=== PATIENT | male | born 1935 | race Caucasian/White ===

== ENCOUNTER 2020-07-27 17:45 | Inpatient (IN) | payer MEDICARE ==
[~2020-07-27] VITALS: Ht 165.1 cm; Wt 49.0 kg
[2020-07-27 18:15] LABS: *BILIRUBIN,URIN NEGATIVE (NEGATIVE); *BLOOD, URINE 3+ (NEGATIVE); *CLARITY,URINE TURBID (CLEAR); *COLOR,URINE YELLOW (YELLOW); *KETONES,URINE TRACE (NEGATIVE); LEUKOCYTE ESTERASE ,URINE 3+ (NEGATIVE); NITRITE, URINE POSITIVE (NEGATIVE); UGLUCOSE NEGATIVE (NEGATIVE)
[2020-07-27 18:17] LABS: BASOPHILS % (AUTO) 0.3 % (0.0-2.0); EOSINOPHILS # (AUTO) 0.2 K/uL (0.0-0.7); EOSINOPHILS % (AUTO) 2.2 % (0.0-7.0); HEMATOCRIT 32.2 % (36.7-47.1); HEMOGLOBIN 10.9 g/dL (12.5-16.3); LYMPHOCYTES # (AUTO) 3.3 K/uL (20.0-40.0); LYMPHOCYTES % (AUTO) 38.5 % (20.5-51.5); MEAN CORPUSCULAR HEMOGLOBIN 31.2 uug (23.8-33.4); MEAN CORPUSCULAR HGB CONC 34 g/dL (32.5-36.3); MEAN CORPUSCULAR VOLUME 92.3 fL (73.0-96.2); MONOCYTES # (AUTO) 0.8 K/uL (2.0-10.0); MONOCYTES % (AUTO) 9.1 % (0.0-11.0); NEUTROPHILS # (AUTO) 4.2 K/uL (1.8-8.9); NEUTROPHILS % (AUTO) 49.9 % (38.5-71.5); PLATELET COUNT (AUTO) 314 K/uL (152-348); RED BLOOD CELL COUNT(AUTO) 3.49 MIL/uL (4.06-5.63); WHITE BLOOD COUNT (AUTO) 8.4 K/uL (3.6-10.2)
[2020-07-27 18:27] LABS: *AMPHETAMINE, URINE NEGATIVE (NEGATIVE); *CANNABINOID, URINE NEGATIVE (NEGATIVE); *COCCAINE, URINE NEGATIVE (NEGATIVE); *OPIATE, URINE NEGATIVE (NEGATIVE); *PHENCYCLIDINE SCREEN,URINE NEGATIVE (NEGATIVE)
[2020-07-27 18:29] LABS: CARBON DIOXIDE 31 mmol/L (21-32); CHLORIDE 105 mmol/L (98-107); CREATININE 0.9 mg/dL (0.6-1.3); ETHANOL < 3 MG/DL (0-0); GLUCOSE 132 mg/dL (74-106); POTASSIUM 3.4 mmol/L (3.5-5.1); UREA NITROGEN, BLOOD 24 mg/dL (7-18)
[2020-07-27 18:35] LABS: ALANINE AMINOTRANSFERASE 11 U/L (16-63); ALKALINE PHOSPHATASE 63 U/L (50-136); ASPARTATE AMINOTRANSFERASE 14 U/L (15-37); BILIRUBIN,DIRECT 0.1 mg/dL (0.0-0.2); BILIRUBIN,TOTAL 0.3 mg/dL (0.2-1.0); TOTAL PROTEIN, SERUM 7.2 g/dL (6.4-8.2)
--- NOTE | 2020-07-27 18:38 | NUR ---
Patient is resting comfortably on gurney, awake, calm & cooperative at the moment, still medical clearance & psych evaluation@this time.
[2020-07-27 18:39] LABS: ACETAMINOPHEN < 2.0 ug/mL (10-30)
[2020-07-27 18:43] LABS: THYROID STIMULATING HORMONE 3.496 mIU/mL (0.358-3.740)
[2020-07-27] MEDS ORDERED: AMLO5TAB9 PO (18:45)
[2020-07-27] MEDS ORDERED: CYAN-10 IM (18:45)
[2020-07-27] MEDS ORDERED: DIVA250T4 PO (18:45)
[2020-07-27] MEDS ORDERED: BISA10SU61 RC (18:45)
--- NOTE | 2020-07-27 18:54 | NUR ---
Hands off report given to DA Hilario
[2020-07-27] MEDS ORDERED: NITROFURANTOIN/NITROFURAN MAC 100 MG CAPSULE PO ONE ×2 (19:00→19:54)
[2020-07-27] MEDS ORDERED: POTASSIUM CHLORIDE 20 MEQ TAB.PRT.SR PO ONE (19:00)
--- NOTE | 2020-07-27 19:05 | NUR ---
Medically cleared by DR Champagne. Called Pinky from PET team. ETA is 1hr.
[2020-07-27] MEDS ORDERED: POTASSIUM CHLORIDE 20 MEQ TAB.PRT.SR ONE (19:53)
[2020-07-27] MEDS ORDERED: TDAP DIPH,PERTUSS,TET VAC/PF 0.5 ML DISP.SYRIN IM ONE (20:16)
--- NOTE | 2020-07-27 21:15 | NUR ---
Transported to MHU via gurny with no distress noted.
[2020-07-27 21:23] LABS: RBC,URINE 20-50 /HPF (0-3); WBC,URINE TNTC /HPF (0-3)
[2020-07-27 21:24] LABS: BACTERIA,URINE MODERATE /HPF (NONE SEEN); SQUAMOUS EPITHELIAL CELL,UR FEW /HPF (NONE SEEN)
[2020-07-27] MEDS ORDERED: MAGNESIUM HYDROXIDE 30 ML LIQUID UDC PO PRN (21:30)
[2020-07-27] MEDS ORDERED: MAG HYDROX/AL HYDROX/SIMETH 30 ML LIQUID UDC PO PRN (21:30)
[2020-07-27] MEDS ORDERED: BLOOD SUGAR DIAGNOSTIC 1 EACH STRIP VI ONE (21:30)
[2020-07-27] MEDS ORDERED: OLANZAPINE 10 MG VIAL IM ONE (21:30)
[2020-07-27 23:21] VITALS: BP 138/66
[2020-07-28] MEDS: TEMAZEPAM 7.5 MG CAPSULE PO PRN (00:51)
--- NOTE | 2020-07-28 01:00 | NUR ---
GPS/Rn - Admit 85 years old male to MHU under the care of Elicia Zhou and Chan Zhou with Dx of Psychosis. Pt was accompianed by ER staff via catalino. Pt admitted on 5149 for GD, DTO from [facility]. Per hold pt was combative, confuse and non compliant with treatment and care. Upon face to face interview noted pt unable to communicate appropriately and too confuse. Pt was very difficult to care for due to behavior and became combative with staffs during initial assessment. Unable to keep pt calm and was not able to prevent possible injury due to pt kept getting out and unable to ambulate. Dx history are: HTN, Dementia, Anemia, Weight loss, Hypothyroidism. By 2209 new order was received from Elicia Zhou to give Zyprexa 5mg IM to help pt calm. Order carried out and pt was monitored. Pt has no next of kin, SNF aware of admission. Skin was assessed and pt had bedsore and right and left side of buttock and bruise on right lower arm. Documented and picture in chart, will endorse to f/up for wound consult. Pt is weak on BLE. By 49 Pt still awake and unable able to sleep, pt was transfer to howard-chair due to continue agitation. At this time pt still awake and agitated unable to rest. PRN Restoril was given and will continue monitor. Pt Right and handbook and Advisement placed in bedside table, pt unable to sign due to condition at this time. Q/15mins head count initiated and will monitor for safety. Continue monitoring, pt at this moment awake in howard-chair.
[2020-07-28] MEDS: LORAZEPAM 1 MG TABLET PO PRN ×2 (03:42→21:20)
--- NOTE | 2020-07-28 04:25 | NUR ---
Pt was still awake and restless after Restoril was administered. None pharmacological intervention ineffective. PRN Ativan was given at 0342. Pt was showered and now transfer to bed. Noted resting with eyes close. Per report pt had x1 Macrobid per abnormal lab result and will need to f/up with Chan Zhou. Also pt had x1 K-dur 20meq due to low potassium level. Will continue monitor and safety precaution in place.
[2020-07-28 07:41] LABS: THYROID STIMULATING HORMONE 7.274 mIU/mL (0.358-3.740)
[2020-07-28 07:53] LABS: BILIRUBIN,TOTAL 0.3 mg/dL (0.2-1.0); CREATININE 0.8 mg/dL (0.6-1.3); POTASSIUM 4.2 mmol/L (3.5-5.1); TOTAL PROTEIN, SERUM 7.7 g/dL (6.4-8.2)
[2020-07-28 07:57] LABS: MAGNESIUM 1.9 mg/dL (1.8-2.4); PHOSPHOROUS 3.2 mg/dL (2.5-4.9)
--- NOTE | 2020-07-28 08:47 | NUR ---
refused vital signs , will recheck later to give amlodipine med.
--- NOTE | 2020-07-28 09:31 | NUR ---
Lois Giles in and saw patient. aware of need consult for wound, speech and diet consult. patient sleeping on and off, sleeping more now after this am round.
[2020-07-28] MEDS: AMLODIPINE 5 MG TABLET PO SCH (11:44)
[2020-07-28 11:45] VITALS: BP 133/80
[2020-07-28] MEDS: NITROFURANTOIN/NITROFURAN MAC 100 MG CAPSULE PO SCH ×2 (11:45→21:20)
--- NOTE | 2020-07-28 11:45 | NUR ---
awake now from prn meds given for agitation. Hob up. able to feed breakfast 75 % , liquid needed to be thickened. took am meds without difficulty.
--- NOTE | 2020-07-28 12:42 | NUR ---
up chair for lunch, tolerating well
[2020-07-28] MEDS ORDERED: OLANZAPINE 2.5 MG TABLET PO PRN (15:30)
[2020-07-28 16:00] VITALS: BP 117/85
[2020-07-28] MEDS: DIVALPROEX SPRINKLE 125 MG CAP.SPRINK PO SCH ×2 (16:11→21:39)
--- NOTE | 2020-07-28 18:24 | NUR ---
ate well for breakfast and lunch, less for dinner. tolerating solid food well. taking fluids well with thickener, voiding accordingly . prn short hollering . taking meds well.
--- NOTE | 2020-07-28 18:24 | NUR ---
awake from lunch to end of shift.
[2020-07-28 20:00] VITALS: BP 125/59
[2020-07-29] MEDS: TEMAZEPAM 7.5 MG CAPSULE PO PRN ×2 (02:12→21:16)
--- NOTE | 2020-07-29 05:26 | NUR ---
GPS/NSG Patient first observed sitting in howard-chair located in unit hallway with no insight into current situation, flat affect low mood. Fair appearance noted. Patient unable to ambulate, is incontinent and requires maximum assistance from staff. Patient is compliant with medication when prompted nursing interventions applied. Patient continues to require observation for safety as well as a therapeutic environment to ensure optimal outcomes.
[2020-07-29 07:30] VITALS: BP_SYST 138; BP_SYST 91; BP_DIAS 52; BP_DIAS 72
[2020-07-29] MEDS: NITROFURANTOIN/NITROFURAN MAC 100 MG CAPSULE PO SCH ×2 (10:06→21:15)
[2020-07-29] MEDS: DIVALPROEX SPRINKLE 125 MG CAP.SPRINK PO SCH ×2 (10:06→20:00)
[2020-07-29] MEDS: AMLODIPINE 5 MG TABLET PO SCH (10:06)
[2020-07-29 15:21] VITALS: BP 91/52
[2020-07-29 20:23] VITALS: BP 126/56
--- NOTE | 2020-07-30 06:27 | NUR ---
GPS/NSG Patient first observed lying in bed with no insight into current situation, flat affect low mood. Fair appearance noted. Patient unable to ambulate, is incontinent and requires maximum assistance from staff. Patient is compliant with medication when prompted nursing interventions applied, wound consult not yet addressed, will endorse to day shift this morning. Patient continues to require observation for safety as well as a therapeutic environment to ensure an optimal outcome.
[2020-07-30 07:30] VITALS: BP 99/45
[2020-07-30] MEDS: DIVALPROEX SPRINKLE 125 MG CAP.SPRINK PO SCH ×3 (08:00→20:09)
[2020-07-30] MEDS: AMLODIPINE 5 MG TABLET PO SCH ×2 (09:00→12:31)
[2020-07-30] MEDS: NITROFURANTOIN/NITROFURAN MAC 100 MG CAPSULE PO SCH ×3 (09:00→20:09)
--- NOTE | 2020-07-30 09:57 | NUR ---
CALLIE Initial Discharge Plan: Patient is from [facility] [place] [address] ( ). CALLIE spoke with Tegan from [facility] who stated that the patient is welcome back upon discharge. CALLIE will continue to work with patient and MD to ensure a safe and proper discharge plan.
--- NOTE | 2020-07-30 10:00 | NUR ---
Firearms Report: Primary Care Pediatrician completed and submitted a DOJ firearms report for 5150 danger to others and grave disability certification. A copy of report has been placed in patient chart.
[2020-07-30 20:34] VITALS: BP 111/58
[2020-07-30] MEDS: LORAZEPAM 1 MG TABLET PO PRN (23:06)
[2020-07-31] MEDS: TEMAZEPAM 7.5 MG CAPSULE PO PRN ×2 (00:49→22:31)
--- NOTE | 2020-07-31 01:32 | NUR ---
RECEIVED PATIENT AWAKE IN HIS ROOM.HE LATER STARTED SLIDING OFF HIS BED.SEVERAL ATTEMPTS AT REDIRECTION FAILED HE BECAME INCREASINGLY AGITATED.TAB ATIVAN 1MG WAS GIVEN AT 22:05 .LATER GIVEN TAB RESTORIL 7.5MG WHEN ATIVAN WAS INEFFECTIVE. IN A TRAVON CHAIR IN FRONT OF NURSES STATION FOR SAFETY.APPEARS CONFUSED TANGENTIAL AND CANNOT GRASP SIMPLE CONCEPTS.FED SNACKS AND DECUBITUS CLEANED AND CREAM APPLIED. WILL CONTINUE TO MONITOR.
[2020-07-31] MEDS: LORAZEPAM 1 MG TABLET PO PRN ×2 (05:49→20:13)
[2020-07-31] MEDS: ACETAMINOPHEN 325 MG TABLET PO PRN (05:49)
--- NOTE | 2020-07-31 06:56 | NUR ---
HE SLEPT FOR ONLY ONE HOUR. CLEANED AND MADE COMFORTABLE IN BED. HOWEVER TRYING TO GET OUT OF BED AGAIN AND HITTING STAFF WHEN BEING CHANGED.
[2020-07-31 07:30] VITALS: BP 106/55
[2020-07-31] MEDS: NITROFURANTOIN/NITROFURAN MAC 100 MG CAPSULE PO SCH ×2 (08:02→20:13)
[2020-07-31] MEDS: DIVALPROEX SPRINKLE 125 MG CAP.SPRINK PO SCH ×2 (08:02→20:13)
[2020-07-31] MEDS: AMLODIPINE 5 MG TABLET PO SCH (08:02)
--- NOTE | 2020-07-31 12:18 | NUR ---
called and left message to Dr. Friedman re: podiatry consult , will continue follow up
--- NOTE | 2020-07-31 12:46 | NUR ---
WOUND CARE CONSULT: PT PRESENTS WITH BILATERAL STAGE 3 ULCERS TO BUTTOCKS, PRESENT ON ADMISSION. PT IS VERY THIN AND BONY. RECOMMENDATIONS MADE FOR SKIN PROTECTION AND WOUND CARE. DISCUSSED WITH NURSING STAFF. RECOMMEND SURGICAL CONSULT. DR KEVON STEVENS NOTIFIED OF CONSULT REQUEST. IN AGREEMENT WITH PLAN OF CARE. Addendum: 07/31/20 at 1247 by NOLBERTO PARIKH RN Amended: Links added. Addendum: 07/31/20 at 1250 by NOLBERTO PARIKH RN LEFT HEEL SCAR NOTED.
[2020-07-31] MEDS: ENSURE ENLIVE (VAN) 240 ML LIQUID PO SCH ×2 (13:33→16:31)
[2020-07-31 16:20] VITALS: BP 108/53
[2020-07-31 20:11] VITALS: BP 100/59
[2020-07-31] MEDS: Z GUARD REMEDY PASTE 57 GM TUBE TOP PRN (20:22)
[2020-07-31] MEDS: Z GUARD REMEDY PASTE 57 GM TUBE TOP SCH (22:45)
--- NOTE | 2020-08-01 06:07 | NUR ---
Patient compliant with medications. Slept 4.30 hours. Remains in bed, changed brief and bilateral buttocks wound dressing. Pt needs were met and safety measures remain intact. Will endorse to oncoming staff.
[2020-08-01 07:30] VITALS: BP 115/70
[2020-08-01] MEDS: DIVALPROEX SPRINKLE 125 MG CAP.SPRINK PO SCH ×2 (08:00→08:18)
[2020-08-01] MEDS: AMLODIPINE 5 MG TABLET PO SCH ×2 (09:00→09:21)
[2020-08-01] MEDS: Z GUARD REMEDY PASTE 57 GM TUBE TOP SCH ×3 (09:00→20:39)
[2020-08-01] MEDS: NITROFURANTOIN/NITROFURAN MAC 100 MG CAPSULE PO SCH ×3 (09:00→20:37)
[2020-08-01] MEDS: ENSURE ENLIVE (VAN) 240 ML LIQUID PO SCH ×2 (09:20→12:07)
[2020-08-01] MEDS ORDERED: NITROFURANTOIN/NITROFURAN MAC 100 MG CAPSULE PO ONE (11:45)
[2020-08-01] MEDS ORDERED: DIVALPROEX SPRINKLE 125 MG CAP.SPRINK PO SCH (11:45)
[2020-08-01] MEDS ORDERED: DIVALPROEX SPRINKLE 125 MG CAP.SPRINK PO ONE (11:45)
[2020-08-01] MEDS ORDERED: AMLODIPINE 5 MG TABLET PO ONE (11:45)
[2020-08-01 11:54] LABS: BASOPHILS % (AUTO) 0.6 % (0.0-2.0); EOSINOPHILS # (AUTO) 0.3 K/uL (0.0-0.7); EOSINOPHILS % (AUTO) 3.4 % (0.0-7.0); HEMATOCRIT 33.6 % (36.7-47.1); HEMOGLOBIN 11.4 g/dL (12.5-16.3); LYMPHOCYTES # (AUTO) 3.3 K/uL (20.0-40.0); LYMPHOCYTES % (AUTO) 42.1 % (20.5-51.5); MEAN CORPUSCULAR HEMOGLOBIN 31.3 uug (23.8-33.4); MEAN CORPUSCULAR HGB CONC 34 g/dL (32.5-36.3); MEAN CORPUSCULAR VOLUME 92.2 fL (73.0-96.2); MONOCYTES # (AUTO) 0.8 K/uL (2.0-10.0); MONOCYTES % (AUTO) 9.6 % (0.0-11.0); NEUTROPHILS # (AUTO) 3.5 K/uL (1.8-8.9); NEUTROPHILS % (AUTO) 44.3 % (38.5-71.5); PLATELET COUNT (AUTO) 292 K/uL (152-348); RED BLOOD CELL COUNT(AUTO) 3.64 MIL/uL (4.06-5.63); WHITE BLOOD COUNT (AUTO) 7.9 K/uL (3.6-10.2)
--- NOTE | 2020-08-01 12:01 | NUR ---
SW Family Contact: This news writer attempted to call patient's daughter Flory ([phone]) and left a voicemail for a call back.
[2020-08-01 12:28] LABS: BILIRUBIN,TOTAL 0.2 mg/dL (0.2-1.0); CREATININE 0.8 mg/dL (0.6-1.3); MAGNESIUM 1.7 mg/dL (1.8-2.4); POTASSIUM 4.2 mmol/L (3.5-5.1); TOTAL PROTEIN, SERUM 7.2 g/dL (6.4-8.2)
[2020-08-01 16:00] VITALS: BP 103/61
[2020-08-01] MEDS: MAGNESIUM OXIDE 250 MG TABLET PO SCH (17:30)
[2020-08-01] MEDS: BOOST PLUS 237 ML LIQUID (RICH CHOCOLATE) PO SCH (17:31)
--- NOTE | 2020-08-01 17:52 | NUR ---
Patient continue turning positioning for DTI in sacrum. Picture in chart. Continue cleanse and treatment with good effect. no drainage and foul smell noted. Patient no agitation noted. Patient magnesium 1.7, replace to magnesium 250mg PO. not in distress. Patient complaint with medications. Patient consume meals between 75%- 100%. will continue monitor
--- NOTE | 2020-08-01 20:00 | NUR ---
received patient in his room in bed asleep but easily arousable. patient noted a/o x 1 (name only) he is confused, unable to have a meaningful conversation with this health technical writer. will continue with turn and reposition q2hrs d/t stage [address]ub[address]. v/s stable. safety and fall precaution in place. will continue to monitor closely.
[2020-08-01 20:23] VITALS: BP 124/68
[2020-08-02] MEDS: TEMAZEPAM 7.5 MG CAPSULE PO PRN (00:05)
[2020-08-02 07:30] VITALS: BP 116/55
[2020-08-02] MEDS: BOOST PLUS 237 ML LIQUID (RICH CHOCOLATE) PO SCH ×2 (08:20→17:34)
[2020-08-02] MEDS: NITROFURANTOIN/NITROFURAN MAC 100 MG CAPSULE PO SCH ×2 (08:50→20:16)
[2020-08-02] MEDS: AMLODIPINE 5 MG TABLET PO SCH (08:50)
--- NOTE | 2020-08-02 09:00 | NUR ---
received patient in bed, awake, calm. No SI/HI noted. No distress noted. No SOB. No SI/HI noted. compliant with medication, On aspiration Precaution, kept HOB elevated while Eating and taking medications. Turned and repositioned. Wound care provided. Will continue to monitor.
[2020-08-02] MEDS: Z GUARD REMEDY PASTE 57 GM TUBE TOP SCH ×2 (09:09→20:17)
[2020-08-02] MEDS: MAGNESIUM OXIDE 250 MG TABLET PO SCH (10:08)
[2020-08-02] MEDS: DIVALPROEX SPRINKLE 125 MG CAP.SPRINK PO SCH ×2 (15:26→19:37)
[2020-08-02 16:08] VITALS: BP 110/64
[2020-08-02 20:00] VITALS: BP 134/76
[2020-08-02] MEDS: LORAZEPAM 1 MG TABLET PO PRN (20:58)
[2020-08-03 07:30] VITALS: BP 112/55
[2020-08-03 07:48] LABS: CREATININE 0.6 mg/dL (0.6-1.3)
[2020-08-03] MEDS: AMLODIPINE 5 MG TABLET PO SCH (09:01)
[2020-08-03] MEDS: MAGNESIUM OXIDE 250 MG TABLET PO SCH (09:01)
[2020-08-03] MEDS: BOOST PLUS 237 ML LIQUID (RICH CHOCOLATE) PO SCH ×2 (09:02→17:23)
[2020-08-03] MEDS: Z GUARD REMEDY PASTE 57 GM TUBE TOP SCH ×2 (09:02→20:19)
[2020-08-03] MEDS: DIVALPROEX SPRINKLE 125 MG CAP.SPRINK PO SCH ×2 (09:07→20:09)
--- NOTE | 2020-08-03 11:58 | NUR ---
CALLIE PC Hearing: Patient had probable cause hearing today and it was upheld for grave disability.
[2020-08-03 16:00] VITALS: BP 106/52
[2020-08-03 20:00] VITALS: BP 137/75
[2020-08-03] MEDS ORDERED: DIVALPROEX 250 MG TABLET.DR PO SCH (21:00)
[2020-08-03] MEDS: LORAZEPAM 1 MG TABLET PO PRN (21:07)
--- NOTE | 2020-08-04 06:51 | NUR ---
PATIENT SLEPT FOR APPROX 6.45 HRS THROUGH THE NIGHT. HE IS NOTED LESS COMBATIVE. ABLE TO ACCEPT CARE. WILL CONTINUE TO MONITOR.
[2020-08-04 07:30] VITALS: BP 93/50
[2020-08-04] MEDS: AMLODIPINE 5 MG TABLET PO SCH (09:00)
[2020-08-04] MEDS: MAGNESIUM OXIDE 250 MG TABLET PO SCH (11:46)
[2020-08-04] MEDS: DIVALPROEX SPRINKLE 125 MG CAP.SPRINK PO SCH ×2 (11:46→20:07)
[2020-08-04] MEDS: Z GUARD REMEDY PASTE 57 GM TUBE TOP SCH ×2 (11:47→20:12)
[2020-08-04] MEDS: BOOST PLUS 237 ML LIQUID (RICH CHOCOLATE) PO SCH ×2 (13:56→18:23)
[2020-08-04 16:33] VITALS: BP 90/51
[2020-08-04 20:00] VITALS: BP 106/55
[2020-08-04] MEDS: TEMAZEPAM 7.5 MG CAPSULE PO PRN (22:01)
--- NOTE | 2020-08-04 23:00 | NUR ---
GPS:TX: Patient from [address]. TO Room 141A Due to patient c/o his room mate keep walking and disturbing him.
[2020-08-04] MEDS: LORAZEPAM 1 MG TABLET PO PRN (23:35)
--- NOTE | 2020-08-04 23:39 | NUR ---
patient is agitated,getting out of bed. ativan 1 mg po given. assisted patient in howard chair for safety.Resting in howard chair near nursing station.
--- NOTE | 2020-08-05 00:40 | NUR ---
patient is calm now. prn effective for agitation.
--- NOTE | 2020-08-05 05:42 | NUR ---
GPS: Remain awake most of the night. slept only 1.45 minutes after Restoril given for sleep. showered this morning. resting in bed comfortably. continue plan of care.
[2020-08-05 07:10] LABS: CREATININE 0.8 mg/dL (0.6-1.3); MAGNESIUM 1.9 mg/dL (1.8-2.4)
[2020-08-05 07:51] VITALS: BP 104/54
[2020-08-05] MEDS: BOOST PLUS 237 ML LIQUID (RICH CHOCOLATE) PO SCH ×2 (08:00→16:21)
[2020-08-05] MEDS: MAGNESIUM OXIDE 250 MG TABLET PO SCH (08:28)
[2020-08-05] MEDS: DIVALPROEX SPRINKLE 125 MG CAP.SPRINK PO SCH ×2 (08:28→20:41)
[2020-08-05] MEDS: AMLODIPINE 5 MG TABLET PO SCH (08:28)
[2020-08-05] MEDS: Z GUARD REMEDY PASTE 57 GM TUBE TOP SCH ×2 (08:29→20:22)
[2020-08-05] MEDS: LORAZEPAM 1 MG TABLET PO PRN (11:26)
[2020-08-05] MEDS: ACETAMINOPHEN 325 MG TABLET PO PRN (11:26)
[2020-08-05 16:52] VITALS: BP 91/52
[2020-08-05 21:10] VITALS: BP 111/58
[2020-08-06] MEDS: Z GUARD REMEDY PASTE 57 GM TUBE TOP PRN (06:08)
[2020-08-06 07:30] VITALS: BP 134/70
--- NOTE | 2020-08-06 07:30 | NUR ---
Received patient Aox1, on his bed lying on his left side, patient was compliant with medication, no distress at this time
[2020-08-06] MEDS: BOOST PLUS 237 ML LIQUID (RICH CHOCOLATE) PO SCH ×2 (08:00→16:44)
[2020-08-06] MEDS: DIVALPROEX SPRINKLE 125 MG CAP.SPRINK PO SCH (08:22)
[2020-08-06] MEDS: AMLODIPINE 5 MG TABLET PO SCH (08:23)
[2020-08-06] MEDS: MAGNESIUM OXIDE 250 MG TABLET PO SCH (08:23)
[2020-08-06] MEDS: Z GUARD REMEDY PASTE 57 GM TUBE TOP SCH ×2 (08:23→20:23)
[2020-08-06 10:58] LABS: BASOPHILS % (AUTO) 0.3 % (0.0-2.0); EOSINOPHILS # (AUTO) 0.3 K/uL (0.0-0.7); EOSINOPHILS % (AUTO) 4.3 % (0.0-7.0); HEMATOCRIT 36.4 % (36.7-47.1); HEMOGLOBIN 12.2 g/dL (12.5-16.3); LYMPHOCYTES # (AUTO) 3.2 K/uL (20.0-40.0); LYMPHOCYTES % (AUTO) 44.3 % (20.5-51.5); MEAN CORPUSCULAR HEMOGLOBIN 31.1 uug (23.8-33.4); MEAN CORPUSCULAR HGB CONC 34 g/dL (32.5-36.3); MEAN CORPUSCULAR VOLUME 92.4 fL (73.0-96.2); MONOCYTES # (AUTO) 0.4 K/uL (2.0-10.0); NEUTROPHILS # (AUTO) 3.3 K/uL (1.8-8.9); NEUTROPHILS % (AUTO) 46.1 % (38.5-71.5); PLATELET COUNT (AUTO) 336 K/uL (152-348); RED BLOOD CELL COUNT(AUTO) 3.94 MIL/uL (4.06-5.63); WHITE BLOOD COUNT (AUTO) 7.2 K/uL (3.6-10.2)
[2020-08-06 11:02] LABS: BILIRUBIN,TOTAL 0.2 mg/dL (0.2-1.0); CREATININE 0.7 mg/dL (0.6-1.3); POTASSIUM 3.5 mmol/L (3.5-5.1); VALPROIC ACID 31 ug/mL (50-100)
--- NOTE | 2020-08-06 11:30 | NUR ---
patient wanted to go urinate assisted to the toilet, patient started to get agitated, standing up by himself, patient , oral prn medication given, patient calm down will continue monitor
[2020-08-06] MEDS: LORAZEPAM 1 MG TABLET PO PRN (11:42)
--- NOTE | 2020-08-06 14:12 | NUR ---
patient shouting wanting to go out of his chair, confused, patient irritable and needs redirection, gave activities like music and painting patient still continue to be irritated, gave food, patient calm down
[2020-08-06 15:13] VITALS: BP 156/82
[2020-08-06] MEDS ORDERED: DIVALPROEX SPRINKLE 125 MG CAP.SPRINK PO SCH (17:00)
[2020-08-06 20:48] VITALS: BP 96/54
[2020-08-06] MEDS: TEMAZEPAM 7.5 MG CAPSULE PO PRN (20:56)
--- NOTE | 2020-08-07 04:55 | NUR ---
GPS: Pt.remains asleep during rounds. In no acute distress noted. Turned from side to side Q2 hrs to prevent from further skin breakdown. Reality re-orientation provided prn. Fall precautions observed.
[2020-08-07 07:30] VITALS: BP 110/56
[2020-08-07] MEDS: Z GUARD REMEDY PASTE 57 GM TUBE TOP SCH ×2 (09:00→20:18)
[2020-08-07] MEDS: AMLODIPINE 5 MG TABLET PO SCH (09:00)
[2020-08-07] MEDS: MAGNESIUM OXIDE 250 MG TABLET PO SCH (09:00)
[2020-08-07] MEDS: BOOST PLUS 237 ML LIQUID (RICH CHOCOLATE) PO SCH ×2 (09:46→17:22)
[2020-08-07] MEDS: DIVALPROEX SPRINKLE 125 MG CAP.SPRINK PO SCH (09:46)
[2020-08-07 15:56] VITALS: BP 130/74
[2020-08-07] MEDS: LORAZEPAM 1 MG TABLET PO PRN (19:33)
--- NOTE | 2020-08-07 19:39 | NUR ---
GPS: Pt.is sitting on the howard-chair in front of nurses station. Anxious,restless,yelling intermittently and non-sensical. Confused,disoriented. Constant re-direction provided. Easily getting agitated when being re-directed. Ativan 1mg given PO. Will monitor effectiveness and for any adverse reactions. Fall precautions observed. Reality re-orientation provided.
[2020-08-07 20:28] VITALS: BP 114/61
[2020-08-07] MEDS ORDERED: DIVALPROEX SPRINKLE 125 MG CAP.SPRINK PO SCH (21:00)
[2020-08-08] MEDS: Z GUARD REMEDY PASTE 57 GM TUBE TOP PRN (05:55)
[2020-08-08 07:30] VITALS: BP 125/64
[2020-08-08] MEDS: DIVALPROEX SPRINKLE 125 MG CAP.SPRINK PO SCH ×3 (08:31→16:52)
[2020-08-08] MEDS: MAGNESIUM OXIDE 250 MG TABLET PO SCH (08:31)
[2020-08-08] MEDS: AMLODIPINE 5 MG TABLET PO SCH (08:31)
[2020-08-08] MEDS: Z GUARD REMEDY PASTE 57 GM TUBE TOP SCH ×2 (08:36→20:58)
[2020-08-08] MEDS: BOOST PLUS 237 ML LIQUID (RICH CHOCOLATE) PO SCH ×2 (08:37→16:53)
[2020-08-08] MEDS: LORAZEPAM 1 MG TABLET PO PRN ×2 (10:58→14:58)
[2020-08-08 16:00] VITALS: BP 110/62
--- NOTE | 2020-08-08 18:49 | NUR ---
UA sample collected and sent to lab. Will follow up and endorse.
[2020-08-08 19:39] LABS: *BLOOD, URINE 3+ (NEGATIVE); *CLARITY,URINE SLIGHTLY CLOUDY (CLEAR); *COLOR,URINE RED (YELLOW); *KETONES,URINE 2+ (NEGATIVE); LEUKOCYTE ESTERASE ,URINE 3+ (NEGATIVE); NITRITE, URINE NEGATIVE (NEGATIVE); UGLUCOSE TRACE (NEGATIVE)
[2020-08-08 19:40] LABS: *BILIRUBIN,URIN 3+ (NEGATIVE)
[2020-08-08 19:49] LABS: RBC,URINE TNTC /HPF (0-3)
[2020-08-08 19:50] LABS: WBC,URINE 20-50 /HPF (0-3)
[2020-08-08 19:51] LABS: BACTERIA,URINE FEW /HPF (NONE SEEN); SQUAMOUS EPITHELIAL CELL,UR FEW /HPF (NONE SEEN)
[2020-08-08 20:00] VITALS: BP 121/71
[2020-08-08] MEDS: OLANZAPINE 2.5 MG TABLET PO SCH (20:58)
--- NOTE | 2020-08-09 02:36 | NUR ---
Received patient in bed asleep, no behavioral issue at the moment, poor insight, poor judgement. Med compliant. Patient will remain in a psych facility for further evaluation and treatment.
[2020-08-09 07:30] VITALS: BP 113/55
[2020-08-09 08:01] LABS: BASOPHILS % (AUTO) 0.5 % (0.0-2.0); EOSINOPHILS # (AUTO) 0.3 K/uL (0.0-0.7); EOSINOPHILS % (AUTO) 3.1 % (0.0-7.0); HEMOGLOBIN 9.9 g/dL (12.5-16.3); LYMPHOCYTES # (AUTO) 3.9 K/uL (20.0-40.0); LYMPHOCYTES % (AUTO) 40.3 % (20.5-51.5); MEAN CORPUSCULAR HEMOGLOBIN 31.5 uug (23.8-33.4); MEAN CORPUSCULAR HGB CONC 34 g/dL (32.5-36.3); MEAN CORPUSCULAR VOLUME 92.2 fL (73.0-96.2); MONOCYTES # (AUTO) 0.7 K/uL (2.0-10.0); MONOCYTES % (AUTO) 7.7 % (0.0-11.0); NEUTROPHILS # (AUTO) 4.6 K/uL (1.8-8.9); NEUTROPHILS % (AUTO) 48.4 % (38.5-71.5); PLATELET COUNT (AUTO) 279 K/uL (152-348); RED BLOOD CELL COUNT(AUTO) 3.14 MIL/uL (4.06-5.63); WHITE BLOOD COUNT (AUTO) 9.6 K/uL (3.6-10.2)
[2020-08-09 08:23] LABS: BILIRUBIN,TOTAL 0.2 mg/dL (0.2-1.0); CREATININE 0.8 mg/dL (0.6-1.3); POTASSIUM 4.2 mmol/L (3.5-5.1); TOTAL PROTEIN, SERUM 6.6 g/dL (6.4-8.2)
[2020-08-09] MEDS: BOOST PLUS 237 ML LIQUID (RICH CHOCOLATE) PO SCH ×2 (08:35→16:39)
[2020-08-09] MEDS: MAGNESIUM OXIDE 250 MG TABLET PO SCH (08:35)
[2020-08-09] MEDS: DIVALPROEX SPRINKLE 125 MG CAP.SPRINK PO SCH ×3 (08:35→17:07)
[2020-08-09] MEDS: Z GUARD REMEDY PASTE 57 GM TUBE TOP SCH ×2 (08:36→20:40)
[2020-08-09] MEDS: AMLODIPINE 5 MG TABLET PO SCH (08:36)
[2020-08-09 16:00] VITALS: BP 94/55
[2020-08-09] MEDS: CEphaleXIN 500 MG CAPSULE PO SCH (17:07)
--- NOTE | 2020-08-09 18:51 | NUR ---
Patient bleeding noted while urinating. Patient S/P hollingsworth catheter yesterday for urine collection. Patient no complaint of pain/discomfort as of this time. will continue monitor Addendum: 08/09/20 at 1918 by HUMERA PETIT RN RN DEEPAK Connell notified. no new order as of this time. Patient still Alert. not in distress. no c/o or signs of pain/discomfort. will endorse
[2020-08-09 20:00] VITALS: BP 142/80
[2020-08-09] MEDS: OLANZAPINE 2.5 MG TABLET PO SCH (20:40)
--- NOTE | 2020-08-10 06:07 | NUR ---
GPS: Remain calm and cooperative with meds and care. assisted with adl's. In no acute distress noted. Turned from side to side Q2 hrs to prevent from further skin breakdown.slept 9.15 hrs through the night. Fall precautions observed.
--- NOTE | 2020-08-10 08:49 | NUR ---
received patient asleep in his assigned bed. bed is in low and locked position will bed alarm on. respirations are even and unlabored. will attempt assessment when patient awake.
[2020-08-10] MEDS: BOOST PLUS 237 ML LIQUID (RICH CHOCOLATE) PO SCH ×2 (10:11→17:40)
[2020-08-10] MEDS: MAGNESIUM OXIDE 250 MG TABLET PO SCH (10:12)
[2020-08-10] MEDS: AMLODIPINE 5 MG TABLET PO SCH (10:12)
[2020-08-10] MEDS: DIVALPROEX SPRINKLE 125 MG CAP.SPRINK PO SCH ×3 (10:12→17:44)
[2020-08-10] MEDS: CEphaleXIN 500 MG CAPSULE PO SCH ×2 (10:12→17:44)
[2020-08-10] MEDS: Z GUARD REMEDY PASTE 57 GM TUBE TOP SCH ×2 (10:21→21:19)
--- NOTE | 2020-08-10 12:00 | NUR ---
Patient sitting in chair. patient is anxious, restless, confused, and disoriented. patient constantly asking nursing staff to let him off the unit. he is unable to comprehend that he is in a hospital receiving mental health treatment. patient is compliant with medication, no adverse reaction noted. patient requires assistance with self care, transferring, and toileting. he is able to feed himself and tolerates food and fluids well. patient is religiously preoccupied. at times, he attempts to bite staff and hit staff during transfer but is redirectable.
[2020-08-10 15:13] VITALS: BP 96/52
--- NOTE | 2020-08-10 16:44 | NUR ---
Patient has bright red blood coming out of urethra. denies pain or discomfort. SPORTS DEVELOPMENT OFFICER notified. orders placed for hemoglobin/hematocrit. patient is able to urinate without difficulty. patient provided with fluids.
[2020-08-10 20:06] VITALS: BP 97/56
[2020-08-10] MEDS: OLANZAPINE 2.5 MG TABLET PO SCH (21:18)
[2020-08-10] MEDS: LORAZEPAM 1 MG TABLET PO PRN (21:32)
[2020-08-11 07:23] LABS: HEMATOCRIT 29.9 % (36.7-47.1); HEMOGLOBIN 10.2 g/dL (12.5-16.3)
[2020-08-11 07:30] VITALS: BP 102/59
[2020-08-11] MEDS: BOOST PLUS 237 ML LIQUID (RICH CHOCOLATE) PO SCH ×2 (08:00→17:23)
[2020-08-11] MEDS: AMLODIPINE 5 MG TABLET PO SCH (09:00)
[2020-08-11] MEDS: CEphaleXIN 500 MG CAPSULE PO SCH ×2 (09:12→17:23)
[2020-08-11] MEDS: DIVALPROEX SPRINKLE 125 MG CAP.SPRINK PO SCH ×3 (09:12→17:23)
[2020-08-11] MEDS: MAGNESIUM OXIDE 250 MG TABLET PO SCH (09:12)
[2020-08-11] MEDS: Z GUARD REMEDY PASTE 57 GM TUBE TOP SCH ×2 (09:14→20:18)
--- NOTE | 2020-08-11 13:07 | NUR ---
Gps/Oil Painter- Patient had been sleeping most of the morning, , repositioned for comfort, , unable to administer 1300 meds. will re offer at a later time when fully awake.
--- NOTE | 2020-08-11 15:43 | NUR ---
Gps/Restorer [employer]s- Wound care to bilateral ischium , granulation noted, sites washed with soap and water kept clean and dry.Z-guard applied around sites, hydrogel, and mepilex foam changed . Kept skin dry and clean, pressure relief, heels floated,, repositioned at a regular intervals. Patient was resistive to his care this pm. trying to scratch staff
[2020-08-11 15:51] VITALS: BP 146/92
[2020-08-11 20:00] VITALS: BP 91/56
[2020-08-11] MEDS: OLANZAPINE 2.5 MG TABLET PO SCH (20:16)
[2020-08-11] MEDS: LORAZEPAM 1 MG TABLET PO PRN (20:18)
[2020-08-11] MEDS: TEMAZEPAM 7.5 MG CAPSULE PO PRN (22:20)
[2020-08-12 07:30] VITALS: BP 124/58
[2020-08-12] MEDS: CEphaleXIN 500 MG CAPSULE PO SCH ×2 (08:44→17:32)
[2020-08-12] MEDS: DIVALPROEX SPRINKLE 125 MG CAP.SPRINK PO SCH ×3 (08:45→17:32)
[2020-08-12] MEDS: MAGNESIUM OXIDE 250 MG TABLET PO SCH (08:45)
[2020-08-12] MEDS: AMLODIPINE 5 MG TABLET PO SCH (08:45)
[2020-08-12] MEDS: BOOST PLUS 237 ML LIQUID (RICH CHOCOLATE) PO SCH ×2 (08:45→17:32)
--- NOTE | 2020-08-12 10:19 | NUR ---
Gps/Automotive Glass Specialist- ENGRAVER MACHINE taken patient to shower, noted, increasing agitation, agressiveness, trying to bite scratching staff as they provide his care. Confused, difficulty redirecting patient, poor insight. Total care with his am care this am. Incontienent of pasty stools,Noted scanty bleeding from his penis, as noted in his diaper, will continue to assess any further bleeding. Foam to his inshium off at this time r/t to bowel incontienence/during cleanin, will attempt to redressing wound whel ptFlorencia parnell. Kept up on his howard-chair, stayed in his group tx.
[2020-08-12] MEDS: Z GUARD REMEDY PASTE 57 GM TUBE TOP SCH ×2 (11:19→21:14)
--- NOTE | 2020-08-12 12:07 | NUR ---
Gps/Trade Embalmer- Error in charting (Charted on a wrong patient)
[2020-08-12] MEDS: LORAZEPAM 1 MG TABLET PO PRN (14:49)
[2020-08-12 16:00] VITALS: BP 108/60
--- NOTE | 2020-08-12 18:42 | NUR ---
Gps/Guest Service Representative- Assisted patient back to bed, max assist gets resistive during his care. Incontienent of pasty, stools provided good hygiene, z-guard applied, mepilex reapplied to small wounds on his ischiums , hydrogel was applied. garnulations noted, pressure relief, repositioned to his sides.
[2020-08-12 20:00] VITALS: BP 143/72
[2020-08-12] MEDS: OLANZAPINE 2.5 MG TABLET PO SCH (21:14)
--- NOTE | 2020-08-13 06:54 | NUR ---
GPS - Pt was received in bed, asleep with WNL breathing. Monitoring pt with no new behavior noted, resting in bed but awake to name or light touch. Pt had x2 loose large amount of BM. Skin was cleaned and kept dry. Cooperative with care with minimal combative. Will endorse to incoming nurse.
[2020-08-13 07:30] VITALS: BP 104/74
[2020-08-13] MEDS: AMLODIPINE 5 MG TABLET PO SCH (09:00)
[2020-08-13] MEDS: MAGNESIUM OXIDE 250 MG TABLET PO SCH (09:57)
[2020-08-13] MEDS: CEphaleXIN 500 MG CAPSULE PO SCH ×2 (09:57→17:32)
[2020-08-13] MEDS: DIVALPROEX SPRINKLE 125 MG CAP.SPRINK PO SCH ×3 (09:57→17:32)
[2020-08-13] MEDS: BOOST PLUS 237 ML LIQUID (RICH CHOCOLATE) PO SCH ×2 (09:58→17:32)
[2020-08-13] MEDS: Z GUARD REMEDY PASTE 57 GM TUBE TOP SCH ×2 (09:58→20:14)
--- NOTE | 2020-08-13 13:03 | NUR ---
CALLIE Family Contact: SW contacted patient's daughter Flory ([phone]) and informed her pt will be discharged tomorrow Thursday08/14/20 back to [facility]. Daughter agreed with discharge plan.
[2020-08-13 15:11] VITALS: BP 102/66
[2020-08-13] MEDS ORDERED: OLANZAPINE 2.5 MG TABLET PO SCH (21:00)
[2020-08-13 21:10] VITALS: BP 122/69
[2020-08-14] MEDS: TEMAZEPAM 7.5 MG CAPSULE PO PRN (00:44)
--- NOTE | 2020-08-14 06:53 | NUR ---
Received Pt in the hallway, sitting in the howard chair. A+Ox1, Pt is forgetful, disoriented, and confused. Has episodes os loud, disruptive behavior, but is redirectable. Exhibits delusional behavior and responds to internal stimuli, talking to himself and unseen others. Conversation is irrelvant and nonsensical. Compliant with crushed medications, remains with poor PO intake, but ate 100% of his snacks. Remains on aspiration precautions and q2 hour repositioning schedule while in bed. wound change completed to sacral and (R) buttock decubitus, no s/s of infection, appears to be healing without complication. Denies pain, VS stable, in no acute physical distress.
[2020-08-14 07:30] VITALS: BP 102/48
[2020-08-14] MEDS: MAGNESIUM OXIDE 250 MG TABLET PO SCH (08:17)
[2020-08-14] MEDS: DIVALPROEX SPRINKLE 125 MG CAP.SPRINK PO SCH ×2 (08:17→13:22)
[2020-08-14] MEDS: CEphaleXIN 500 MG CAPSULE PO SCH (08:17)
[2020-08-14 08:19] VITALS: BP 104/48
[2020-08-14] MEDS: AMLODIPINE 5 MG TABLET PO SCH (08:19)
[2020-08-14] MEDS: BOOST PLUS 237 ML LIQUID (RICH CHOCOLATE) PO SCH (08:24)
[2020-08-14] MEDS: Z GUARD REMEDY PASTE 57 GM TUBE TOP SCH (08:26)
--- NOTE | 2020-08-14 10:29 | NUR ---
SW DISCHARGE NOTE: Pt will be discharged at 3:00pm via facility transport to [facility] located at [address] [place] [id number] . Patient's daughter Flory ([phone]) has been notified and agrees with discharge plan. Pt is alert and oriented x1, to self, Pt is ambulatory and appears appropriately dressed and groomed. Pts mood is anxious with congruent affect. Pt denies visual/auditory hallucinations and denies suicidal/homicidal ideation. Pt will be under the care of Psychiatrist: Dr. Linda Montgomery [address] [address] [phone] and Pollution Control Engineer: Dr. Buchanan located at [address] [place] [address] [address], [place] [address]; . The multidisciplinary exit care form was done, printed, signed, and given to the patient.
--- NOTE | 2020-08-14 14:30 | NUR ---
Pt picking crew supervisor with SNF dedicated regional driver at 1430 pm via facility transport to [facility] ([facility]) , patient remains confused and disoriented, pressure sore on sacrum treatment done as ordered, discharge picture taken .all personal belonging taken with patient.
== END 2020-08-14 14:30 | DRG 885 ==
LOC: ER 17:45 → GPS 21:03
PROVIDERS: ADMIT Psychiatry & Neurology Psychosomatic Medicine; ATTEND Nurse Practitioner Acute Care
DX: F29 Unspecified psychosis not due to a substance or known physiological condition (principal); F01.50 Vascular dementia, unspecified severity, without behavioral disturbance, psychotic disturbance, mood disturbance, and anxiety; L89.323 Pressure ulcer of left buttock, stage 3; L89.313 Pressure ulcer of right buttock, stage 3; E44.0 Moderate protein-calorie malnutrition; Z68.1 Body mass index [BMI] 19.9 or less, adult; N39.0 Urinary tract infection, site not specified; D63.8 Anemia in other chronic diseases classified elsewhere; E03.9 Hypothyroidism, unspecified; I10 Essential (primary) hypertension; F25.9 Schizoaffective disorder, unspecified; I25.10 Atherosclerotic heart disease of native coronary artery without angina pectoris; M19.90 Unspecified osteoarthritis, unspecified site; E88.09 Other disorders of plasma-protein metabolism, not elsewhere classified; F03.90 Unspecified dementia, unspecified severity, without behavioral disturbance, psychotic disturbance, mood disturbance, and anxiety; M62.81 Muscle weakness (generalized); Z86.19 Personal history of other infectious and parasitic diseases; L89.629 Pressure ulcer of left heel, unspecified stage; N40.1 Benign prostatic hyperplasia with lower urinary tract symptoms
CPT/HCPCS: 36415; 70030-TC; 71045; 80164; 83735; 84100; 84443; 85018; 85025; 87086; 90715; 93005; A4663; G0480; J2358

== ENCOUNTER 2021-07-05 16:36 | Inpatient (IN) | payer MEDICARE, OTHER ==
[~2021-07-05] VITALS: Ht 160 cm; Wt 50.3 kg
[~2021-07-05 16:36] MED LIST: AMLO-212 PO; BISA10SU61 RC; CYAN-10 IM
[2021-07-05] MEDS ORDERED: DIVA125T2 PO (17:27)
[2021-07-05] MEDS ORDERED: ACET-2605 PO (17:27)
[2021-07-05] MEDS ORDERED: ACET-2154 PO (17:27)
[2021-07-05] MEDS ORDERED: ASCO500P18 PO (17:27)
[2021-07-05] MEDS ORDERED: BISA10SU61 RC (17:27)
[2021-07-05] MEDS ORDERED: MAG30ORA PO (17:27)
[2021-07-05] MEDS ORDERED: LORA-258 PO (17:27)
[2021-07-05] MEDS ORDERED: NA P133E RC (17:27)
[2021-07-05] MEDS ORDERED: AMLO-212 PO (17:27)
[2021-07-05] MEDS ORDERED: VITAMIN D PO (17:27)
[2021-07-05] MEDS ORDERED: MULT-594 PO (17:27)
[2021-07-05] MEDS ORDERED: MELA3TAB52 PO (17:27)
[2021-07-05 17:35] LABS: HEMATOCRIT 28.6 % (36.7-47.1); MEAN CORPUSCULAR VOLUME 84.4 fL (73.0-96.2); PLATELET COUNT (AUTO) 354 K/uL (152-348)
[2021-07-05 17:46] LABS: ETHANOL < 3 MG/DL (0-0)
[2021-07-05 17:47] LABS: CARBON DIOXIDE 27 mmol/L (21-32); CHLORIDE 104 mmol/L (98-107); CREATININE 0.7 mg/dL (0.6-1.3); GLUCOSE 109 mg/dL (74-106); POTASSIUM 3.6 mmol/L (3.5-5.1); UREA NITROGEN, BLOOD 22 mg/dL (7-18)
[2021-07-05 17:50] LABS: MAGNESIUM 1.4 mg/dL (1.8-2.4); PHOSPHOROUS 3.4 mg/dL (2.5-4.9)
[2021-07-05 17:52] LABS: ALANINE AMINOTRANSFERASE 14 U/L (16-63); ALKALINE PHOSPHATASE 82 U/L (50-136); ASPARTATE AMINOTRANSFERASE 16 U/L (15-37); BILIRUBIN,DIRECT 0.1 mg/dL (0.0-0.2); BILIRUBIN,TOTAL 0.2 mg/dL (0.2-1.0); TOTAL PROTEIN, SERUM 7.5 g/dL (6.4-8.2)
[2021-07-05 17:53] LABS: ACETAMINOPHEN < 2.0 ug/mL (10-30)
[2021-07-05] MEDS ORDERED: MAGNESIUM OXIDE 400 MG TABLET PO ONE (18:00)
[2021-07-05 18:04] LABS: THYROID STIMULATING HORMONE 4.052 mIU/mL (0.358-3.740)
--- NOTE | 2021-07-05 18:17 | NUR ---
Notified Gloria Diaz RN for psych eval, no eta was given.
[2021-07-05] MEDS ORDERED: MAGNESIUM OXIDE 400 MG TABLET ONE (18:24)
[2021-07-05] MEDS ORDERED: OLANZAPINE 10 MG VIAL IM ONE ×4 (18:45→21:39)
--- NOTE | 2021-07-05 19:15 | NUR ---
Crisis team/Gloria came to evaluate patient.
--- NOTE | 2021-07-05 19:23 | NUR ---
Gloria Diaz RN PET arrived to ER for pt psych evaluation.
--- NOTE | 2021-07-05 21:30 | NUR ---
Patient becoming restless and anxious. Trying to get out of bed. Assist to wheelchair, but started wondering around the hallway. Informed Dr. Kim and ordered Zyprexa. Will carry out order.
[2021-07-05] MEDS ORDERED: LIDOCAINE 2% (UROJET) 10 ML JELLY MM ONE ×2 (23:45→23:47)
--- NOTE | 2021-07-05 23:51 | NUR ---
Straight catheterization done, obtain 300ml urine output.
[2021-07-06 00:04] LABS: *BILIRUBIN,URIN NEGATIVE (NEGATIVE); *BLOOD, URINE 1+ (NEGATIVE); *KETONES,URINE NEGATIVE (NEGATIVE); *UROBILINOGEN,URINE 0.2 E.U./dl (NORMAL); LEUKOCYTE ESTERASE ,URINE 1+ (NEGATIVE); NITRITE, URINE POSITIVE (NEGATIVE); UGLUCOSE NEGATIVE (NEGATIVE)
[2021-07-06 00:18] LABS: *AMPHETAMINE, URINE NEGATIVE (NEGATIVE); *CANNABINOID, URINE NEGATIVE (NEGATIVE); *COCCAINE, URINE NEGATIVE (NEGATIVE); *OPIATE, URINE NEGATIVE (NEGATIVE); *PHENCYCLIDINE SCREEN,URINE NEGATIVE (NEGATIVE)
[2021-07-06 00:19] LABS: *CLARITY,URINE HAZY (CLEAR); *COLOR,URINE STRAW (YELLOW)
[2021-07-06 00:40] LABS: BACTERIA,URINE MODERATE /HPF (NONE SEEN); SQUAMOUS EPITHELIAL CELL,UR NONE SEEN /HPF (NONE SEEN)
--- NOTE | 2021-07-06 00:45 | NUR ---
Pt. admitted to U, Room 139A, under care of Dr. Carrera. Belongs List completed
[2021-07-06] MEDS ORDERED: MAGNESIUM HYDROXIDE 30 ML LIQUID UDC PO PRN (01:15)
[2021-07-06] MEDS ORDERED: MAG HYDROX/AL HYDROX/SIMETH 30 ML LIQUID UDC PO PRN ×2 (01:15→08:00)
--- NOTE | 2021-07-06 01:30 | NUR ---
GPS ADMISSION NOTE : Patient is an 86 year old man, brought to the hospital from [facility]. The patient was put on a 5150 for DTO and GD. Per the hold, this patient was aggressive and verbally abusive to the staff. Also the patient has been non compliant with his medications. Upon face to face evaluation, the patient was noted to very confused and unable to answer any questions or engage in any meaningful conversation. VS were stable and all belonging were inventoried. Orders received for PRN medications. None needed so far. The patient was assisted with a shower and went to sleep right away. No aggression or behavior escalation at this time. Fluids encouraged and frequent rounding is done to ensure a safe environment for the patient.
[2021-07-06 05:59] VITALS: BP 143/84
[2021-07-06] MEDS ORDERED: BISACODYL 10 MG SUPP.RECT RC PRN (08:00)
[2021-07-06] MEDS ORDERED: FLEET ENEMA 133 ML BOTTLE RC PRN (08:00)
[2021-07-06 08:39] VITALS: BP 139/78
[2021-07-06] MEDS: AMLODIPINE 5 MG TABLET PO SCH (08:52)
[2021-07-06] MEDS: ASCORBIC ACID 500 MG TABLET PO SCH (08:52)
[2021-07-06] MEDS: MULTIVITAMINS,THERAPEUTIC TABLET PO SCH (08:52)
[2021-07-06] MEDS: LORAZEPAM 1 MG TABLET PO PRN ×3 (08:52→20:56)
[2021-07-06] MEDS ORDERED: Medication Not On Formulary EA (Ascorbic Acid (Vitamin C) 500 MG) PO SCH (09:00)
[2021-07-06] MEDS ORDERED: Medication Not On Formulary EA (Multivitamins (Multivitamin) 1 EACH) PO SCH (09:00)
[2021-07-06] MEDS ORDERED: MELATONIN 3 MG TABLET PO PRN (09:30)
[2021-07-06] MEDS: OLANZAPINE 2.5 MG TABLET PO SCH ×2 (11:55→20:20)
[2021-07-06] MEDS: DIVALPROEX ER 250 MG TAB.SR.24H PO SCH ×2 (12:38→16:53)
--- NOTE | 2021-07-06 14:19 | NUR ---
GPS: Nursing Notes: Destructive Behavior to Others: Patient is awake responding to his name, poor impulse control, episodes of trying to out of his bed without any regard for his safety, unable to ambulate, A/Ox1, confused, disorganized, disoriented, impaired judgment, poor insight, redirected and reoriented during shift, gets easily irritable when redirected, needs assistance with ADL's, poor anger management, resistant with nursing care, needs a lot of prompting to be compliant with nursing care, unable to formulate a viable plan for self care, continue to monitor for safety, continue with treatment plan.
[2021-07-06 16:47] VITALS: BP 144/95
[2021-07-06 20:00] VITALS: BP 108/70
[2021-07-06] MEDS: ACETAMINOPHEN 325 MG TABLET PO PRN (20:21)
[2021-07-06] MEDS ORDERED: Medication Not On Formulary EA (Melatonin 3 MG) PO SCH (21:00)
--- NOTE | 2021-07-07 03:01 | NUR ---
Received patient at start of the shift, confused and sitting in a howard chair. Patient was able to take medications without difficulty and this underwriter mortgage loan encouraged PO intake. This whole time patient would not open his eyes or respond in any sensible manor. The patient became somewhat aggressive when staff was providing care and resisted the help despite calm, slow explanations of what was going on. After patient was put to bed, he fell asleep quickly. Continuing to make frequent rounds to ensure safety and the bed alarm is on.
[2021-07-07 08:23] VITALS: BP 137/77
[2021-07-07] MEDS: OLANZAPINE 2.5 MG TABLET PO SCH ×3 (09:00→20:16)
[2021-07-07] MEDS: DIVALPROEX ER 250 MG TAB.SR.24H PO SCH ×4 (09:00→16:23)
[2021-07-07] MEDS: ASCORBIC ACID 500 MG TABLET PO SCH ×2 (09:00→10:52)
[2021-07-07] MEDS: MULTIVITAMINS,THERAPEUTIC TABLET PO SCH ×2 (09:00→10:52)
[2021-07-07] MEDS: AMLODIPINE 5 MG TABLET PO SCH ×2 (09:00→10:52)
--- NOTE | 2021-07-07 14:10 | NUR ---
GPS: Nursing Notes: Destructive Behavior to Others: Patient is awake and responding to his name, episodes of shouting, overly disruptive by screaming at times, gets easily irritable when redirected, poor anger management, poor impulse control, disoriented, impaired judgment, labile, unpredictable behavior, needs prompting to be compliant with his medications, unable to formulate a viable plan for self care, continue with treatment plan.
[2021-07-07] MEDS: LORAZEPAM 1 MG TABLET PO PRN (15:10)
[2021-07-07 15:18] VITALS: BP 146/82
--- NOTE | 2021-07-07 15:32 | NUR ---
GPS: Nursing Notes: Abnormal Labs. Results: Staff informed Dr. Ledezma of abnormal UA and urine culture (+) for gram negative rods - >100,000 CFU/ml, no further orders given at this time, continue to monitor V/S, continue to monitor for safety, continue with treatment plan.
[2021-07-07 20:00] VITALS: BP 136/76
[2021-07-07] MEDS: ACETAMINOPHEN 325 MG TABLET PO PRN (20:16)
--- NOTE | 2021-07-07 22:00 | NUR ---
received to care, up in howard chair, confused, but verbally responsive to questions. when asked if he was in pain, he stated he was, but was unable to tell where the pain was, or the level of pain experienced. PRN tylenol was given at 2016, along with his routine medications. when assisted to bed later, he was initially resistive, and slightly combative, but was assisted to bed, by staff, without further aggression, and went right to sleep. as of now, he remains asleep, no distress noted. will continue to monitor closely.
--- NOTE | 2021-07-08 06:00 | NUR ---
slept 6.5 hours, total.
[2021-07-08 08:01] VITALS: BP 105/56
[2021-07-08] MEDS: AMLODIPINE 5 MG TABLET PO SCH (09:00)
--- NOTE | 2021-07-08 09:14 | NUR ---
Firearms Report: Public Health Veterinarian completed and submitted a DOJ firearms report for 5150 grave disability certifications. A copy of report has been placed in patient chart.
[2021-07-08] MEDS: DIVALPROEX ER 250 MG TAB.SR.24H PO SCH ×3 (09:27→17:20)
[2021-07-08] MEDS: MULTIVITAMINS,THERAPEUTIC TABLET PO SCH (09:27)
[2021-07-08] MEDS: ASCORBIC ACID 500 MG TABLET PO SCH (09:27)
[2021-07-08] MEDS: OLANZAPINE 2.5 MG TABLET PO SCH ×2 (09:27→20:57)
--- NOTE | 2021-07-08 10:14 | NUR ---
CALLIE Initial Discharge Note: Patient is from [place] [address] [place] [address] ( ). CALLIE spoke with Tegan from [facility] who stated that the patient is welcome back upon discharge. CALLIE will continue to work with patient and MD to ensure a safe and proper discharge plan.
--- NOTE | 2021-07-08 10:26 | NUR ---
Treatment Plan: Patient unable to sign treatment plan due to disorganized thought process.
--- NOTE | 2021-07-08 10:26 | NUR ---
SW SNF Contact: CALLIE spoke with Tegan from [facility] ([phone]) who stated that the patient is welcome back upon discharge.
[2021-07-08 16:10] VITALS: BP 149/85
[2021-07-08] MEDS: LORAZEPAM 1 MG TABLET PO PRN (17:20)
--- NOTE | 2021-07-08 18:11 | NUR ---
GPS: Nursing Notes: Destructive Behavior to Others: Patient is awake and responding to his name, overly disruptive by constantly shouting, verbal abusive toward staff at times, resistant with nursing care, impaired judgment, disoriented, impaired judgment, gets easily irritable when redirected, total care, labile, unpredictable behavior, incontinent of urine, offering cranberry juice during the shift, internally preoccupied, unable to formulate a viable plan for self care, believes that he able to walk by self, but refusing to work with physical therapist, continue to monitor for safety, continue with treatment plan.
[2021-07-08] MEDS: ACETAMINOPHEN 325 MG TABLET PO PRN (20:58)
[2021-07-08 21:00] VITALS: BP 108/58
[2021-07-08] MEDS: TEMAZEPAM 7.5 MG CAPSULE PO PRN (21:57)
--- NOTE | 2021-07-08 22:00 | NUR ---
received to care, up in howard chair, talking to self, easily agitated. compliant with medications, assisted with snack. PRN Restoril was given at 2158, for insomnia. still no result from milk of magnesia. PO fluids given. will continue to monitor closely.
--- NOTE | 2021-07-08 23:00 | NUR ---
appears to be asleep. no distress noted.
--- NOTE | 2021-07-09 06:30 | NUR ---
slept 7.25 hours. still no result from the milk of magnesia; PRN dulcolax suppository was administered, awaiting results.
[2021-07-09 07:30] VITALS: BP 136/62
--- NOTE | 2021-07-09 08:00 | NUR ---
Received report from behavioral sciences department chair nurse. Pt is in room sleeping at this time. Pt is calm, cooperative, no signs of distress or discomfort. Will continue to monitor pt.
[2021-07-09] MEDS: ASCORBIC ACID 500 MG TABLET PO SCH ×2 (09:00→11:54)
[2021-07-09] MEDS: MULTIVITAMINS,THERAPEUTIC TABLET PO SCH ×2 (09:00→11:53)
[2021-07-09] MEDS: OLANZAPINE 2.5 MG TABLET PO SCH ×3 (09:00→20:27)
[2021-07-09] MEDS: DIVALPROEX ER 250 MG TAB.SR.24H PO SCH ×4 (09:00→17:13)
[2021-07-09] MEDS: AMLODIPINE 5 MG TABLET PO SCH ×2 (09:00→11:53)
[2021-07-09] MEDS: ENSURE ENLIVE (VAN) 240 ML LIQUID PO SCH ×2 (12:14→17:00)
[2021-07-09] MEDS: CEphaleXIN 500 MG CAPSULE PO SCH ×2 (13:14→21:50)
[2021-07-09 15:11] VITALS: BP 122/59
[2021-07-09] MEDS: LORAZEPAM 1 MG TABLET PO PRN (17:13)
[2021-07-09 17:52] LABS: *OCCULT BLOOD STOOL POSITIVE (NEGATIVE)
[2021-07-09 20:02] VITALS: BP 112/88
[2021-07-09] MEDS: TEMAZEPAM 7.5 MG CAPSULE PO PRN (21:48)
--- NOTE | 2021-07-09 23:00 | NUR ---
received to care, up in howard chair, talking to self, easily agitated. compliant with medications, assisted with snack. PRN Restoril was given at 2147, for insomnia. PO fluids given. assisted with shower. small BM noted, while in the shower. as of now, he appears to be asleep. no distress noted. will continue to monitor closely.
--- NOTE | 2021-07-10 06:53 | NUR ---
slept 6.75 hours. continues to sleep. unable to give 0600 keflex dose, because pt is too sleepy, to administer. will reevaluate before end of shift.
[2021-07-10 07:30] VITALS: BP 133/54
--- NOTE | 2021-07-10 07:45 | NUR ---
Received report from shift stacker nurse. Pt is in room sleeping at this time. Pt is calm, cooperative, no signs of distress or discomfort. weight shifter was able to give Keflex before the end of shift. Medications to be given crushed in applesauce. Will continue to monitor pt.
[2021-07-10] MEDS: CEphaleXIN 500 MG CAPSULE PO SCH ×3 (07:52→22:19)
[2021-07-10] MEDS: ENSURE ENLIVE (VAN) 240 ML LIQUID PO SCH ×3 (09:00→17:10)
[2021-07-10] MEDS: DIVALPROEX ER 250 MG TAB.SR.24H PO SCH ×3 (09:04→17:09)
[2021-07-10] MEDS: MULTIVITAMINS,THERAPEUTIC TABLET PO SCH (09:04)
[2021-07-10] MEDS: AMLODIPINE 5 MG TABLET PO SCH (09:04)
[2021-07-10] MEDS: ASCORBIC ACID 500 MG TABLET PO SCH (09:04)
[2021-07-10] MEDS: OLANZAPINE 2.5 MG TABLET PO SCH ×2 (09:04→20:41)
--- NOTE | 2021-07-10 12:44 | NUR ---
[facility] Hearing: Patient had [id number] probable cause hearing today and it was upheld for grave disability.
[2021-07-10 16:00] VITALS: BP 156/76
[2021-07-10 21:11] VITALS: BP 137/56
[2021-07-11] MEDS: CEphaleXIN 500 MG CAPSULE PO SCH ×3 (06:34→22:03)
[2021-07-11 07:16] LABS: HEMATOCRIT 28.4 % (36.7-47.1); MEAN CORPUSCULAR HEMOGLOBIN 27.9 uug (23.8-33.4); MEAN CORPUSCULAR VOLUME 84.5 fL (73.0-96.2); PLATELET COUNT (AUTO) 260 K/uL (152-348)
[2021-07-11 07:30] VITALS: BP 115/63
[2021-07-11 07:36] LABS: BILIRUBIN,TOTAL 0.4 mg/dL (0.2-1.0); CREATININE 0.7 mg/dL (0.6-1.3); MAGNESIUM 1.9 mg/dL (1.8-2.4); PHOSPHOROUS 3.1 mg/dL (2.5-4.9); POTASSIUM 3.6 mmol/L (3.5-5.1); TOTAL PROTEIN, SERUM 6.8 g/dL (6.4-8.2)
[2021-07-11] MEDS: OLANZAPINE 2.5 MG TABLET PO SCH ×2 (09:15→20:24)
[2021-07-11] MEDS: DIVALPROEX ER 250 MG TAB.SR.24H PO SCH ×2 (09:16→13:24)
[2021-07-11] MEDS: ASCORBIC ACID 500 MG TABLET PO SCH (09:17)
[2021-07-11] MEDS: MULTIVITAMINS,THERAPEUTIC TABLET PO SCH (09:17)
[2021-07-11] MEDS: AMLODIPINE 5 MG TABLET PO SCH (09:17)
[2021-07-11] MEDS: ENSURE ENLIVE (VAN) 240 ML LIQUID PO SCH ×3 (09:24→17:48)
--- NOTE | 2021-07-11 15:55 | NUR ---
Gps/Daycare Worker- Kept up in his howard-chair, needed assist with his meals. Compliant with routine meds, confused, speech incoherent . Monitor needs and safety.
[2021-07-11 16:00] VITALS: BP 122/73
[2021-07-11] MEDS: DIVALPROEX 125 MG TABLET.DR PO SCH (17:48)
[2021-07-11 20:02] VITALS: BP 116/66
--- NOTE | 2021-07-11 22:03 | NUR ---
GPS: Asleep at this time in bed with bed alarm on for safety. Confused,disoriented and disorganized. Poor insight to present situation. Took due meds.earlier after some persuasion from staff. Fluids encouraged and bernard.fairly. No adverse reactions noted from atb. Afebrile. No striking out behavior noted.
[2021-07-12] MEDS: CEphaleXIN 500 MG CAPSULE PO SCH ×3 (06:16→21:19)
[2021-07-12 07:30] VITALS: BP 133/59
[2021-07-12] MEDS: ENSURE ENLIVE (VAN) 240 ML LIQUID PO SCH ×3 (09:00→17:00)
[2021-07-12] MEDS: MULTIVITAMINS,THERAPEUTIC TABLET PO SCH (09:23)
[2021-07-12] MEDS: DIVALPROEX 125 MG TABLET.DR PO SCH ×3 (09:23→17:06)
[2021-07-12] MEDS: ASCORBIC ACID 500 MG TABLET PO SCH (09:23)
[2021-07-12] MEDS: AMLODIPINE 5 MG TABLET PO SCH (09:23)
[2021-07-12] MEDS: OLANZAPINE 5 MG TABLET PO SCH ×2 (09:24→20:40)
[2021-07-12] MEDS: LORAZEPAM 1 MG TABLET PO PRN (12:16)
--- NOTE | 2021-07-12 15:21 | NUR ---
Gps/Event Manager- Episodes of yelling spells, confused , incoherent, gets anxious. Patient was taken to shower , 2 BRIM GREASER OPERATOR assisting , gets uncooperative with staff during shower.
[2021-07-12 16:04] VITALS: BP 116/59
[2021-07-12 20:10] VITALS: BP 113/61
[2021-07-13] MEDS: CEphaleXIN 500 MG CAPSULE PO SCH ×3 (06:20→20:23)
--- NOTE | 2021-07-13 06:32 | NUR ---
GPS: Pt.slept 7.30 last night. Remains confused,disoriented and disorganized. Easily irritable at times. Poor insight to present situation. Fluids encouraged and bernard.fairly. Afebrile and without any adverse reactions noted from atb.
[2021-07-13 07:30] VITALS: BP 127/68
[2021-07-13] MEDS: ENSURE ENLIVE (VAN) 240 ML LIQUID PO SCH ×3 (09:00→16:49)
[2021-07-13] MEDS: ASCORBIC ACID 500 MG TABLET PO SCH (09:05)
[2021-07-13] MEDS: DIVALPROEX 125 MG TABLET.DR PO SCH ×4 (09:05→20:23)
[2021-07-13] MEDS: OLANZAPINE 5 MG TABLET PO SCH ×2 (09:05→20:23)
[2021-07-13] MEDS: MULTIVITAMINS,THERAPEUTIC TABLET PO SCH (09:06)
[2021-07-13] MEDS: AMLODIPINE 5 MG TABLET PO SCH (09:06)
[2021-07-13] MEDS: LORAZEPAM 1 MG TABLET PO PRN ×2 (13:22→20:23)
--- NOTE | 2021-07-13 14:33 | NUR ---
Gps/Psych Assistant- Patient calling out, yelling disruptive , patient was put back to bed, bed alarm on .repositioned to left side, kept warm and comfortable. Routine pm. meds administered w/ apple sauce.
[2021-07-13 16:00] VITALS: BP 149/58
[2021-07-13 20:00] VITALS: BP 120/75
[2021-07-13] MEDS: TEMAZEPAM 7.5 MG CAPSULE PO PRN (21:56)
--- NOTE | 2021-07-14 05:00 | NUR ---
Received patient at the start of the shift, restless and moving all over the bed. This patient is very confused and unable to follow direction. PM care provided. During that time the patient was yelling and trying to scratch the staff providing care. Later on ,this display card writer was able to administer medications, and encourage a small amount of oral fluids. Patient was turned and repositioned frequently during the night to prevent skin breakdown. Total sleep hours so far are 7.00. Plan to get patient up in chair this am .
[2021-07-14] MEDS: CEphaleXIN 500 MG CAPSULE PO SCH (06:05)
[2021-07-14 07:30] VITALS: BP 112/61
[2021-07-14] MEDS: MULTIVITAMINS,THERAPEUTIC TABLET PO SCH (08:55)
[2021-07-14] MEDS: DIVALPROEX 125 MG TABLET.DR PO SCH ×4 (08:55→20:02)
[2021-07-14] MEDS: ASCORBIC ACID 500 MG TABLET PO SCH (08:55)
[2021-07-14] MEDS: OLANZAPINE 5 MG TABLET PO SCH ×2 (08:55→20:02)
[2021-07-14] MEDS: AMLODIPINE 5 MG TABLET PO SCH (08:55)
[2021-07-14] MEDS: ENSURE ENLIVE (VAN) 240 ML LIQUID PO SCH ×3 (08:56→16:15)
--- NOTE | 2021-07-14 12:56 | NUR ---
Gps/Irrigation Installation Specialist- Patient assisted with his meals, was fed, needed cueing to swallow, remains with occ coughing during his meals. HOB elevated. Confused, disoriented, tries to follow simple command. Bed alarm on , safety emphasized.
--- NOTE | 2021-07-14 15:11 | NUR ---
Gps/Recreation Establishment Manager- Patient stayed up in his howard-chair, by the Nurses station, gets loud, calling out, at times singing out loud. Patient swab for Covid test, uncooperative, , but was able to collect specimen .
[2021-07-14 16:00] VITALS: BP 117/54
[2021-07-14] MEDS: LORAZEPAM 1 MG TABLET PO PRN (16:10)
[2021-07-14 19:50] VITALS: BP 111/56
[2021-07-14] MEDS: TEMAZEPAM 7.5 MG CAPSULE PO PRN (22:42)
--- NOTE | 2021-07-15 05:55 | NUR ---
GPS: Pt.slept 5.30 last night and still asleep at this time. Confused,disoriented, and disorganized. Poor insight to present situation. Has episodes of being uncooperative during incontinence care. Fall precautions observed. Fluids bernard.fairly. Afebrile.
[2021-07-15 07:48] VITALS: BP 91/61
[2021-07-15 09:00] VITALS: BP 91/61
[2021-07-15] MEDS: AMLODIPINE 5 MG TABLET PO SCH (09:00)
[2021-07-15] MEDS: OLANZAPINE 5 MG TABLET PO SCH (09:16)
[2021-07-15] MEDS: DIVALPROEX 125 MG TABLET.DR PO SCH (09:16)
[2021-07-15] MEDS: MULTIVITAMINS,THERAPEUTIC TABLET PO SCH (09:16)
[2021-07-15] MEDS: ASCORBIC ACID 500 MG TABLET PO SCH (09:16)
[2021-07-15] MEDS: ENSURE ENLIVE (VAN) 240 ML LIQUID PO SCH (09:18)
--- NOTE | 2021-07-15 11:00 | NUR ---
SW Discharge Note Patient will be discharged to [facility] [place] ([phone]). Patient pecan picker is arranged by the facilitys transportation for today at 11:00am. [employer] Landscape Ecology Professor spoke with Tegan ([phone]), marketing program coordinator, who stated patient is able to return to facility today. Patient is alert and oriented x1-2 and is not able to plan for self-care at this time but is willing to accept care provided for him at the facility. Patient denies any suicidal or homicidal ideation. Patient is aware and agreeable with discharge plans. Patient will follow up with Dr. Buchanan (Life Science Research Assistant) and Dr. Montesinos (Psychiatrist) at [facility]. Patient presents with euthymic mood and congruent affect.
--- NOTE | 2021-07-15 11:15 | NUR ---
GPS: Nursing Notes: Discharge Notes: Patient is awake and responding to his name, compliant with his medications, cooperative with nursing care, needs prompting to participate in therapeutic groups, denies SI/HI, denies AH/VH, denies pain or discomfort at this time, denies SOB, discharge to [facility] at [address] [place] [address] . Patient will follow up with Dr. Buchanan (exercise instructor) and Dr. Montesinos (psychiatrist) at the facility for aftercare, report given to facility's nurse - DA Walsh shellfish farming supervisor, transported to facility via facility's transportation, took all his belongings with him.
== END 2021-07-15 11:15 | DRG 885 ==
LOC: ER 16:36 → GPS 07-06 00:28
PROVIDERS: ADMIT Psychiatry & Neurology Psychiatry; ATTEND Internal Medicine
DX: F29 Unspecified psychosis not due to a substance or known physiological condition (principal); E43 Unspecified severe protein-calorie malnutrition; N39.0 Urinary tract infection, site not specified; D68.59 Other primary thrombophilia; F23 Brief psychotic disorder; G93.40 Encephalopathy, unspecified; F03.91 Unspecified dementia, unspecified severity, with behavioral disturbance; Z68.1 Body mass index [BMI] 19.9 or less, adult; Z86.16 Personal history of COVID-19; B96.20 Unspecified Escherichia coli [E. coli] as the cause of diseases classified elsewhere; D63.8 Anemia in other chronic diseases classified elsewhere; E03.9 Hypothyroidism, unspecified; F41.9 Anxiety disorder, unspecified; I10 Essential (primary) hypertension; I25.10 Atherosclerotic heart disease of native coronary artery without angina pectoris; D50.9 Iron deficiency anemia, unspecified; Z73.6 Limitation of activities due to disability; M62.81 Muscle weakness (generalized); Z20.822 Contact with and (suspected) exposure to COVID-19
CPT/HCPCS: 36415; 51702; 70030-TC; 71045; 80164; 82378; 83550; 83735; 84100; 84443; 85025; 85730; 87086; 93005; 97161; A4663; C1758; G0480; J2358